=== PATIENT | male | born 1995 | race Caucasian/White ===

== ENCOUNTER 2022-05-21 20:10 | Emergency (ER) | payer BC, OTHER ==
[2022-05-21 22:32] VITALS: BP 137/92; PULSE 71; RESP 16; TEMP 98
[2022-05-22] MEDS ORDERED: ONDANSETRON 4 MG ODT STARTER PACK 2 TAB BTL PO STA (02:08)
--- NOTE | 2022-05-22 02:08 | ED ---
General Adult HPI - General Chief complaint: Headache Stated complaint: Headache Time Seen by Provider: 05/21/22 23:36 Source: patient, RN notes reviewed Mode of arrival: ambulatory - History of Present Illness Initial comments: 27 year old male presents to the Emergency Department for evaluation of frontal headache. States he has been waking up the past two days with a headache accompanied by nausea and vomiting. States he has a history of occular migraines, but reports that this is different. States he took Tylenol and Aleve for pain prior to arrival and is feeling fine now. Denies fever, chills, neck pain, dizziness, chest pain, cough, shortness of breath, abdominal pain, constipation, diarrhea, or dysuria. - Related Data Previous Rx's Medication Instructions Recorded Ondansetron Odt [Zofran Odt] 4 mg PO Q8HR PRN #10 tab 05/22/22 Allergies Allergy/AdvReac Type Severity Reaction Status Date / Time No Known Allergies Allergy Verified 05/21/22 22:32 Review of Systems ROS Statement: Those systems with pertinent positive or pertinent negative responses have been documented in the HPI. ROS Other: All systems not noted in ROS Statement are negative. Past Medical History Past Medical History: No Reported History History of Any Multi-Drug Resistant Organisms: None Reported Past Surgical History: No Surgical Hx Reported Past Psychological History: Anxiety Smoking Status: Never smoker Past Alcohol Use History: Occasional General Exam General appearance: alert, in no apparent distress Head exam: Present: atraumatic, normocephalic, normal inspection Eye exam: Present: normal appearance, PERRL, EOMI. Absent: scleral icterus, conjunctival injection, periorbital swelling ENT exam: Present: normal exam, normal oropharynx, mucous membranes moist, TM's normal bilaterally Neck exam: Present: normal inspection, full ROM. Absent: tenderness, meningismus, lymphadenopathy Respiratory exam: Present: normal lung sounds bilaterally. Absent: respiratory distress, wheezes, rales, rhonchi, stridor Cardiovascular Exam: Present: regular rate, normal rhythm, normal heart sounds. Absent: systolic murmur, diastolic murmur, rubs, gallop, clicks GI/Abdominal exam: Present: soft, normal bowel sounds, other (large abdominal habitus). Absent: distended, tenderness, guarding, rebound, rigid Neurological exam: Present: alert, oriented X3, CN II-XII intact Expanded Patient oriented to: Present: person, place, time Speech: Present: fluid speech Cranial nerves: EOM's Intact: Normal, Tongue Deviation: Normal, Nystagmus: Normal Cerebellar function: Finger to Nose: Normal, Romberg: Normal Motor strength exam: RUE: 5, LUE: 5, RLE: 5, LLE: 5 Eye Response: (4) open spontaneously Motor Response: (6) obeys commands Verbal Response: (5) oriented Dayana Total: 15 Psychiatric exam: Present: normal affect, normal mood Skin exam: Present: warm, dry, intact, normal color. Absent: rash Course Vital Signs 05/21/22 22:23 Temperature 98.0 F Pulse Rate 71 Respiratory 16 Rate Blood Pressure 137/92 O2 Sat by Pulse 98 Oximetry Medical Decision Making - Medical Decision Making This is an obese 27 year old male with a history of ocular migraines who presents to the emergency department for evaluation of frontal headache that resolved prior to arrival. Upon exam, patient is well appearing and in no acute distress. Physical exam findings are unremarkable. He is neurologically intact with no focal deficits. He is symptom free and resting comfortably. He is hypertensive with an elevated diastolic pressure. No known history of hypertension. He will be discharged home to follow up with his PCP. Instructed to keep a headache journal and periodically check his blood pressure at a local pharmacy. Prescribed Zofran if needed for nausea. Encouraged to treat headache discomfort with Tylenol or Motrin. Return parameters discussed in detail. Patient verbalizes understanding and agrees with this plan. Attending: Danielle. Disposition Clinical Impression: Headache, Nausea Disposition: HOME SELF-CARE Condition: Stable Instructions (If sedation given, give patient instructions): Acute Headache (ED) Additional Instructions: Journal headache onset, quality, and accompanying symptoms. May take Tylenol or Motrin if needed for headache. Take Zofran if needed for nausea. Your Blood Pressure was elevated. This can contribute to headaches therefore you should follow-up with your PCP for a recheck next week. Return to the emergency department with any new, worsening, or concerning symptoms as we discussed. Prescriptions: Ondansetron Odt [Zofran Odt] 4 mg PO Q8HR PRN #10 tab PRN Reason: Nausea Is patient prescribed a controlled substance at d/c from ED?: No Referrals: Angie Crow MD [Primary Care Provider] - 1-2 days Time of Disposition: 02:07
== END 2022-05-22 02:28 | disposition home or self-care (01) ==
LOC: EC 20:10
DX: R51.9 Headache, unspecified (principal); R11.2 Nausea with vomiting, unspecified
CPT/HCPCS: 99283; S0119